=== PATIENT | female | born 1990 | race Caucasian/White ===

== ENCOUNTER 2025-03-07 14:53 | Outpatient (CLI) | payer BC ==
--- NOTE | 2025-03-07 16:45 | RADIOLOGY REPORT ---
MR brain no contrast HISTORY: OTHER MIGRAINE, NOT INTRACTABLE, WITHOUT STATUS MIGRAINOSUS TECHNIQUE: MR was performed with a surface coil at 1.5 T magnet. Sagittal, axial and coronal T1 and T2-weighted images were obtained. FINDINGS: No areas of restricted diffusion on diffusion-weighted images. No areas of altered signal intensity on FLAIR imaging sequences. No hydrocephalus. No midline shift. No extra-axial fluid collections. The orbits paranasal sinuses sella and cerebellopontine angles are unremarkable in appearance IMPRESSION: 1. Normal MRI of the brain
== END 2025-03-07 23:59 | disposition home or self-care (01) ==
LOC: MRI02 14:53
PROVIDERS: ATTEND Physician Assistant
DX: G43.809 Other migraine, not intractable, without status migrainosus (principal)
CPT/HCPCS: 70551